=== PATIENT | female | born 1965 | race Caucasian/White ===

== ENCOUNTER → 2016-11-28 | Outpatient (CLI) | payer MEDICARE, OTHER | LOC: OPSV 10:39 | DX: Z45.2 Encounter for adjustment and management of vascular access device (principal) | CPT/HCPCS: G0463; J1642 ==

== ENCOUNTER → 2017-02-03 | Outpatient (CLI) | payer MEDICARE, OTHER ==
[2017-02-03 12:20] LABS: HEMOGLOBIN 12.6 gm/dl (12.3-15.3); RED BLOOD COUNT 4.08 M/UL (4.00-5.10); WHITE BLOOD COUNT 6.5 K/UL (4.5-11.0)
[2017-02-03 12:42] LABS: BUN/CREATININE RATIO 8 (0-10)
== END ==
LOC: OPSV 11:27
PROVIDERS: Legal Medicine
DX: Z45.2 Encounter for adjustment and management of vascular access device (principal); E11.65 Type 2 diabetes mellitus with hyperglycemia; I10 Essential (primary) hypertension; E53.8 Deficiency of other specified B group vitamins; R10.11 Right upper quadrant pain
CPT/HCPCS: 80053; 82150; 82607; 83036; 83690; 84443; 85027; J1642

== ENCOUNTER → 2022-01-03 | Outpatient (CLI) | payer OTHER ==
[~2022-01-03] MED LIST: ACETAMINOPHEN-1 EAC1 PO; ADULT LOW DOSE81 MG PO; CRESTOR20 MG PO; DETROL LA4 MG PO; FLONASE ALLER15.8 ML; GABAPENTIN400 MG PO; IBU800 MG PO; LEVOTHYROXINE50 MCG PO; METFORMIN ER G500 MG PO; ONDANSETRON ODT8 MG SL; PROTONIX 40 MG40 M1 PO; PROVENTIL HFA6.7 GM INH; SEROQUEL100 MG PO; SINGULAIR10 MG PO; TAB-A-VITE TA400 MC1 PO; TIZANIDINE HCL4 MG PO; TOPAMAX50 MG PO; VIIBRYD20 MG PO
[2022-01-03 14:25] LABS: HEMOGLOBIN 12.7 gm/dl (12.3-15.3); RED BLOOD COUNT 4.06 M/UL (4.00-5.10)
[2022-01-03 14:48] LABS: BUN/CREATININE RATIO 12 (0-10)
== END ==
LOC: OPSV2 12:30 → EDSTATUS 12:30 → OPSV2 12:42
PROVIDERS: Orthopaedic Surgery
DX: Z01.818 Encounter for other preprocedural examination (principal); M16.11 Unilateral primary osteoarthritis, right hip; Z88.0 Allergy status to penicillin; Z88.1 Allergy status to other antibiotic agents; Z88.2 Allergy status to sulfonamides; Z45.2 Encounter for adjustment and management of vascular access device
CPT/HCPCS: 36415; 71046; 80048; 85027; 93005; J1642

== ENCOUNTER → 2022-01-14 | Outpatient (CLI) | payer OTHER ==
[~2022-01-14] MED LIST changes: +ELIQUIS 2.5 MG2.5 MG GT; +PERCOCET 5/325 T1 EA PO
[2022-01-14 13:39] LABS: BUN/CREATININE RATIO 10 (0-10)
== END ==
LOC: LAB 12:54
PROVIDERS: Orthopaedic Surgery
DX: Z01.812 Encounter for preprocedural laboratory examination (principal); M16.11 Unilateral primary osteoarthritis, right hip
CPT/HCPCS: 36415; 80048; 86850; 86900; 86901